=== PATIENT | male | born 2000 ===

== ENCOUNTER → 2021-10-28 11:23 | Outpatient (CLI) | payer OTHER, SELFPAY ==
[2021-10-28 11:51] LABS: COVID19 -Nasal RAPID POSITIVE (Negative)
== END ==
PROVIDERS: Referring Provider Nurse Practitioner Family; Visit Provider Nurse Practitioner Family
DX: U07.1 COVID-19 (principal); Z20.822 Contact with and (suspected) exposure to COVID-19
CPT/HCPCS: 87635